=== PATIENT | female | born 1995 | race American Indian/Alaskan Native ===

== ENCOUNTER 2021-10-07 00:44 | Inpatient (IN) | payer SELFPAY ==
[2021-10-07] MEDS ORDERED: LACTATED RINGERS 500 ML IV ONE ×2 (01:08→01:28)
[2021-10-07 01:42] LABS: Hematocrit 30.2 % (30.3-42.9); Hemoglobin 9.6 gm/dl (10.1-14.3); Mean Corpuscular HGB Conc 32 % (30-34); Mean Corpuscular Volume 95 fl (79-97); Platelet Count 233 K/mm3 (140-440); Red Cell Distribution Width 14.6 % (13.2-15.2)
[2021-10-07 01:59] LABS: Bacteria,Urine 4+ /HPF (Negative); Mucus,Urine 2+ /HPF
[2021-10-07 02:02] LABS: Alanine Aminotransferase 7 units/L (7-56)
[2021-10-07 02:03] LABS: Bilirubin,Urine Negative (Negative); Color,Urine Yellow (Yellow); RBC,Urine > 182.0 /HPF (0.0-6.0); WBC,Urine > 182.0 /HPF (0.0-6.0)
[2021-10-07 02:11] LABS: Blood,Urine Moderate (Negative)
[2021-10-07 02:14] LABS: Uric Acid 4.1 mg/dL (3.5-7.6)
[2021-10-07] MEDS ORDERED: miSOPROStol 200 MCG TAB PR PRN (02:28)
[2021-10-07] MEDS ORDERED: NalbUPHINE 10 MG/1 ML INJ IV PRN (02:28)
[2021-10-07] MEDS ORDERED: TERBUTALINE 1 MG/1 ML INJ SUB-Q PRN (02:28)
[2021-10-07] MEDS ORDERED: BUTORPHANOL 2 MG/1 ML INJ IV PRN (02:28)
[2021-10-07] MEDS ORDERED: ePHEDrine SULFATE 50 MG/1 ML INJ IV PRN ×2 (02:28→06:22)
[2021-10-07] MEDS ORDERED: METHYLERGONOVINE MALEATE 0.2 MG/ML VIAL IM PRN (02:28)
[2021-10-07] MEDS ORDERED: MINERAL OIL 30 ML ORAL LIQD PO PRN (02:28)
[2021-10-07] MEDS ORDERED: fentaNYL 100 MCG/2 ML INJ IV PRN (02:28)
[2021-10-07] MEDS ORDERED: ACETAMINOPHEN 325 MG TAB PO PRN (02:28)
[2021-10-07] MEDS ORDERED: AMPICILLIN/NS 2 GM/100 ML 2 GM/100 ML BAG IV ONE (02:28)
[2021-10-07] MEDS ORDERED: LOPERAMIDE 2 MG CAP PO PRN (02:28)
[2021-10-07] MEDS ORDERED: OXYTOCIN 10 UNIT/1 ML INJ IM PRN (02:28)
[2021-10-07] MEDS ORDERED: LIDOCAINE (2%) 20 MG/1 ML VIAL 20 ML MDV INFILTRATI ONE (02:28)
[2021-10-07] MEDS ORDERED: CARBOPROST TROMETHAMINE 250 MCG/1 ML INJ IM PRN (02:28)
[2021-10-07] MEDS ORDERED: LACTATED RINGERS 1,000 ML IV SCH (02:30)
[2021-10-07] MEDS ORDERED: MAGNESIUM SULFATE 4 GM/100 ML BAG IV ONE (02:32)
[2021-10-07 02:54] LABS: Hematocrit 29.5 % (30.3-42.9); Hemoglobin 9.5 gm/dl (10.1-14.3); Mean Corpuscular HGB Conc 32 % (30-34); Mean Corpuscular Volume 95 fl (79-97); Platelet Count 232 K/mm3 (140-440); Red Blood Count 3.12 M/mm3 (3.65-5.03); Red Cell Distribution Width 14.7 % (13.2-15.2)
[2021-10-07] MEDS ORDERED: OXYTOCIN DRIP 30 UNITS/500 ML BAG IV SCH ×2 (03:00)
[2021-10-07] MEDS ORDERED: BETAMET ACET/BETAMET NA PH 6 MG/ML INJ 5 ML MDV IM SCH (03:00)
[2021-10-07] MEDS: hydrALAZINE 20 MG/1 ML INJ IV PRN (03:05)
[2021-10-07] MEDS: MAGNESIUM SULFATE 40GM/1000ML 40 GM/1,000 ML BAG IV SCH ×2 (04:16→21:50)
[2021-10-07] MEDS ORDERED: NALOXONE 0.4 MG/1 ML INJ IV PRN (06:22)
--- NOTE | 2021-10-07 06:24 | Anesthesia Consultation ---
Anesthesia Consult and Med Hx Date of service: 10/07/21 - Airway Anesthetic Teeth Evaluation: Good ROM Head & Neck: Adequate Mental/Hyoid Distance: Adequate Mallampati Class: Class II Intubation Access Assessment: Probably Good - Pulmonary Exam CTA: Yes - Cardiac Exam Cardiac Exam: RRR - Pre-Operative Health Status ASA Pre-Surgery Classification: ASA2 Proposed Anesthetic Plan: Epidural - Pulmonary Hx Smoking: No Hx Asthma: No Hx Respiratory Symptoms: No SOB: No COPD: No Home Oxygen Therapy: No Hx Pneumonia: No Hx Sleep Apnea: No - Cardiovascular System Hx Hypertension: No Hx Coronary Artery Disease: No Hx Heart Attack/AMI: No Hx Angina: No Hx Percutaneous Transluminal Coronary Angioplasty (PTCA): No Hx Cardia Arrhythmia: No Hx Pacemaker: No Hx Internal Defibrillator: No Hx Valvular Heart Disease: No Hx Heart Murmur: No Hx Peripheral Vascular Disease: No - Central Nervous System Hx Neuromuscular Disorder: No Hx Seizures: No CVA: No Hx Back Pain: No Hx Psychiatric Problems: No - Gastrointestinal Hx Ulcer: No Hx Gastroesophageal Reflux Disease: No - Endocrine Hx Renal Disease: No Hx End Stage Renal Disease: No Hx Cirrhosis: No Hx Liver Disease: No Hx Insulin Dependent Diabetes: No Hx Non-Insulin Dependent Diabetes: No Hx Thyroid Disease: No Hx Hypothyroidism: No Hx Hyperthyroidism: No - Hematic Hx Anemia: No Hx Sickle Cell Disease: No - Other Systems Hx Alcohol Use: No Hx Substance Use: No Hx Cancer: No Hx Obesity: No
--- NOTE | 2021-10-07 06:24 | Anesthesia Day of Surgery ---
Anesthesia Day of Surgery - Day of Surgery Patient Examined: Yes Patient H&P Reviewed: Yes Patient is NPO: Yes Beta Blockers: No Cardiac Clearance: No Pulmonary Clearance: No Alfredo's Test: N/A
--- NOTE | 2021-10-07 06:26 | Progress Note ---
Labor Epidural - Labor Epidural Start Time: 05:56 Stop Time: 06:03 Performed by:: KG GARCIA Procedure: Patient is requesting epidural for labor pain. H&P and labs reviewed. Procedure explained, questions answered, consent obtained. Patient placed in sitting position with monitors applied. Timeout performed immediately before start of procedure. Prep/drape in usual sterile fashion. Skin localized 3 mL 1% lidocaine at L[3]-L[4] x 1 attempt. 17-gauge Touhy epidural needle advanced to AGUSTÍN with saline at 10] cm. No blood/CSF noted via epidural needle. Epidural catheter advanced to [13] cm. Negative aspiration for blood and CSF via catheter, negative response to test dose 3 ml 1.5% lidocaine w/ Epi. Sterile dressing applied followed by tape reinforcement. Patient tolerated procedure well. No immediate complications noted.
[2021-10-07] MEDS ORDERED: fentaNYL-BUPIV 2 MCG/ML-0.125% 200 MCG/100 ML BAG EPIDURAL SCH (07:00)
[2021-10-07] MEDS ORDERED: AMPICILLIN/NS 1 GM/50 ML 1 GM/50 ML BAG IV SCH (08:20)
--- NOTE | 2021-10-07 08:30 | History and Physical Report ---
History of Present Illness Date of examination: 10/07/21 Date of admission: 10/07/21 02:29 Chief complaint: Contractions History of present illness: 26-year-old -1-0-3 at 35+0 weeks who presents via EMS with a complaint of regular uterine contractions. Upon evaluation the patient was found to have elevated blood pressures irregular uterine contractions. Her cervical exam consisted of 4 cm dilated and the patient was intact. She reports having had care during this . She denied leakage of fluid or vaginal bleeding. The patient states a history of preeclampsia in previous pregnancies. Her GBS status is unknown. Past History Past Medical History: no pertinent history Past Surgical History: no surgical history Social history: single - Obstetrical History Expected Date of Delivery: 11/11/21 Actual Gestation: 35 Week(s) 0 Day(s) : 4 Para: 3 Hx # Term Pregnancies: 2 Number of Pregnancies: 1 Spontaneous Abortions: 0 Induced : 0 Number of Living Children: 3 Medications and Allergies Allergies Allergy/AdvReac Type Severity Reaction Status Date / Time No Known Allergies Allergy Verified 10/07/21 01:34 Active Meds: Active Medications Acetaminophen (Acetaminophen 325 Mg Tab) 650 mg PO Q4H PRN PRN Reason: Pain, Mild (1-3) Betamethasone Acet/Betameth SodPhos (Betamet Acet/Betamet Na Ph 6 Mg/Ml Inj 5 Ml Mdv) 12 mg IM Q24H RUPERT Stop: 10/08/21 03:01 Last Admin: 10/07/21 03:08 Dose: 12 mg Butorphanol Tartrate (Butorphanol 2 Mg/1 Ml Inj) 2 mg IV Q2H PRN PRN Reason: Pain , Severe (7-10) Carboprost Tromethamine (Carboprost Tromethamine 250 Mcg/1 Ml Inj) 250 mcg IM ONCE PRN PRN Reason: Uterine Bleeding Ephedrine Sulfate (Ephedrine Sulfate 50 Mg/1 Ml Inj) 10 mg IV Q2M PRN PRN Reason: Hypotension Fentanyl (Fentanyl 100 Mcg/2 Ml Inj) 100 mcg IV Q2H PRN PRN Reason: Pain,Severe (7-10) LABOR PAIN Hydralazine HCl (Hydralazine 20 Mg/1 Ml Inj) 5 mg IV Q30MIN PRN PRN Reason: Blood Pressure Last Admin: 10/07/21 03:05 Dose: 5 mg Oxytocin/Sodium Chloride (Pitocin/Ns 30 Unit/500ml) 30 units in 500 mls @ 2 mls/hr IV TITR RUPERT; Protocol Lactated Ringer's (Lactated Ringers) 1,000 mls @ 125 mls/hr IV DIRECT RUPERT Oxytocin/Sodium Chloride (Pitocin/Ns 30 Unit/500ml) 30 units in 500 mls @ 40 mls/hr IV TITR RUPERT; Protocol Magnesium Sulfate (Magnesium Sulfate 40gm/1000ml) 40 gm in 1,000 mls @ 50 mls/hr IV DIRECT RUPERT Last Admin: 10/07/21 04:16 Dose: 2 gm/hr, 50 mls/hr Fentanyl/Bupivacaine/Sodium Chlor (Fentanyl-Bupiv 2 Mcg/Ml-0.125%) 200 mcg in 100 mls @ 12 mls/hr EPIDURAL TITR RUPERT; Protocol Last Admin: 10/07/21 07:29 Dose: 12 mls/hr Ampicillin Sodium (Ampicillin/Ns 1 Gm/50 Ml) 1 gm in 50 mls @ 100 mls/hr IV Q4H RUPERT; Protocol Stop: 10/07/21 23:59 Last Admin: 10/07/21 08:14 Dose: 100 mls/hr Loperamide HCl (Loperamide 2 Mg Cap) 2 mg PO ONCE PRN PRN Reason: give with Hemabate Methylergonovine Maleate (Methylergonovine Maleate 0.2 Mg/Ml Vial) 0.2 mg IM ONCE PRN PRN Reason: Uterine Bleeding Mineral Oil (Mineral Oil 30 Ml Oral Liqd) 30 ml PO QHS PRN PRN Reason: Constipation Misoprostol (Misoprostol 200 Mcg Tab) 800 mcg SC ONCE PRN PRN Reason: Uterine Bleeding Nalbuphine HCl (Nalbuphine 10 Mg/1 Ml Inj) 10 mg IV Q2H PRN PRN Reason: Pain, Moderate (4-6) Naloxone HCl (Naloxone 0.4 Mg/1 Ml Inj) 0.2 mg IV Q5MIN PRN PRN Reason: Respiratory sedation Oxytocin (Oxytocin 10 Unit/1 Ml Inj) 10 unit IM ONCE PRN PRN Reason: Uterine Bleeding Terbutaline Sulfate (Terbutaline 1 Mg/1 Ml Inj) 0.25 mg SUB-Q ONCE PRN PRN Reason: Hyperstimulation/Hypertonicity Review of Systems All systems: negative Genitourinary: pelvic pain, contractions, no leakage of fluid - Vital Signs Vital signs: Vital Signs Pulse Pulse Ox 91 H 72 L 10/07/21 01:01 10/07/21 01:01 Temp Pulse Resp BP Pulse Ox 97.8 F 104 H 16 130/84 100 10/07/21 07:52 10/07/21 08:22 10/07/21 07:52 10/07/21 07:58 10/07/21 08:22 - Physical Exam Breasts: Positive: deferred Cardiovascular: Regular rate Lungs: Positive: Clear to auscultation Abdomen: Positive: normal appearance - Obstetrical Cervical Dilatation: 4 Uterine Contraction Pattern: Regular Uterine Contraction Intensity: Moderate Results Result Diagrams: 10/07/21 01:22 10/07/21 01:09 Abnormal lab results 10/07/21 10/07/21 10/07/21 Range/Units 01:09 01:20 01:20 WBC 11.5 H (4.5-11.0) K/mm3 RBC 3.20 L (3.65-5.03) M/mm3 Hgb 9.6 L (10.1-14.3) gm/dl Hct 30.2 L (30.3-42.9) % Creatinine 0.4 L (0.6-1.2) mg/dL Urine Blood Moderate A (Negative) Urine WBC (Auto) > 182.0 H (0.0-6.0) /HPF U Epithel Cells (Auto) 35.0 H (0-13.0) /HPF 10/07/21 Range/Units 01:22 WBC 11.2 H (4.5-11.0) K/mm3 RBC 3.12 L (3.65-5.03) M/mm3 Hgb 9.5 L (10.1-14.3) gm/dl Hct 29.5 L (30.3-42.9) % Creatinine (0.6-1.2) mg/dL Urine Blood (Negative) Urine WBC (Auto) (0.0-6.0) /HPF U Epithel Cells (Auto) (0-13.0) /HPF All other labs normal. Assessment and Plan - Patient Problems (1) labor Current Visit: Yes Status: Acute Plan to address problem: The patient was admitted and initiated on hydralazine and magnesium sulfate therapy for her elevated blood pressures Expectant management of uterine contractions (2) Hypertension affecting Current Visit: Yes Status: Acute (3) Preeclampsia Current Visit: Yes Status: Acute
--- NOTE | 2021-10-07 09:04 | Procedure Note ---
OB Delivery Note - Delivery Date of Delivery: 10/07/21 Surgeon: ANN SANTOS Estimated blood loss: 200cc - Vaginal Delivery presentation: vertex Delivery position: OA Intrapartum events: labor-<37 weeks, preeclampsia Delivery induction: AROM Delivery monitor: external FHT, external uterine Route of delivery: Delivery placenta: spontaneous Delivery cord: 3 umbilical vessels Episiotomy: none Delivery laceration: none Anesthesia: epidural Delivery comments: The patient had rapid progression from 6 cm to complete for which the delivery was attended by the charge nurse. The patient had a spontaneous vaginal delivery of a liveborn male infant. The was placed on the patient's abdomen. Delayed cord clamping was performed. The cord was clamped and cut and the was placed on the warmer. The placenta delivered spontaneously intact with a three-vessel cord. No lacerations were noted. Weight of 4 pounds 15 ounces Apgars of 8 and 9. Estimated blood loss 200 mL - A at 1 minute: 8 at 5 minutes: 9 Infant Gender: Male (Weight 4 pounds 15 ounces)
[2021-10-07] MEDS ORDERED: MAGNESIUM HYDROXIDE (MOM) ORAL LIQD UDC PO PRN (09:30)
[2021-10-07] MEDS ORDERED: ONDANSETRON 4 MG/2 ML INJ IV PRN (10:00)
[2021-10-07] MEDS ORDERED: diphenhydrAMINE 25 MG CAP PO PRN (10:00)
[2021-10-07] MEDS ORDERED: PROMETHAZINE 25 MG TAB PO PRN (10:00)
[2021-10-07] MEDS ORDERED: WITCH HAZEL/ GLYCERIN PAD TP PRN (10:00)
[2021-10-07] MEDS ORDERED: LANOLIN/ZINC/DIMETHICONE (LANSINOH) 7 GM TP PRN (10:00)
[2021-10-07] MEDS ORDERED: PROMETHAZINE 25 MG RECT SUPP PR PRN (10:00)
[2021-10-07] MEDS ORDERED: HYDROcodone/ACETAMINOPHEN 5-325 MG TAB PO PRN (10:00)
[2021-10-07 18:00] LABS: Amphetamine Screen,Urine Negative; Benzodiazepines Screen,Urine Negative; Cocaine Screen,Urine Negative; Methadone Screen,Urine Negative; Opiate Screen,Urine Negative
[2021-10-07 18:18] LABS: Mucus,Urine FEW /HPF
[2021-10-07] MEDS: IBUPROFEN 800 MG TAB PO SCH (18:28)
[2021-10-07 18:35] LABS: Bilirubin,Urine Negative (Negative); Blood,Urine 1+ (Negative); Color,Urine Yellow (Yellow); Protein,Urine <15 mg/dL mg/dL (Negative); Urobilinogen,Urine < 2.0 mg/dL (<2.0)
[2021-10-07 19:23] LABS: Cannabinoid Screen,Urine Positive
--- NOTE | 2021-10-07 20:00 | Post Anesthesia Evaluation ---
- Post Anesthesia Evaluation Patient Participated: Yes Airway Patent: Yes Stable Respiratory Function: Yes Nausea/Vomiting: No Temp > 96.8F: Yes Pain Manageable: Yes Adequeate Hydration: Yes Anesthesia Complications: No Block Receding Appropriately: Yes Patient on Ventilator: No
[2021-10-07 21:03] LABS: Hepatitis C Virus Antibody Nonreactive (NonReactive)
[2021-10-07 22:00] LABS: Hematocrit 26.3 % (30.3-42.9); Hemoglobin 8.3 gm/dl (10.1-14.3)
[2021-10-08] MEDS: IBUPROFEN 800 MG TAB PO SCH ×3 (00:23→22:30)
--- NOTE | 2021-10-08 08:39 | Progress Note ---
Assessment and Plan A: PPD#1 s/p at 35wks Pre-eclampsia s/p Mag sulfate Acute on chronic anemia P: Continue with routine care with discharge anticipated tomorrow morning Initiate oral iron supplementation Subjective - Subjective Date of service: 10/08/21 Principal diagnosis: PPD1 s/p at 35wks Interval history: Pt is feeling well and without complaints. She reports adequate pain control and decreasing lochia. During the encounter the patient was being transferred to . Patient reports: appetite normal, voiding normally, pain well controlled : in NICU Objective - Vital Signs Latest vital signs: Vital Signs Temp Pulse Resp BP BP Pulse Ox Pulse Ox 10/08/21 08:24 81 100 10/08/21 08:19 75 100 10/08/21 08:14 74 115/71 100 10/08/21 08:09 73 100 10/08/21 08:04 75 100 10/08/21 07:59 74 100 10/08/21 07:54 74 100 10/08/21 07:49 74 100 10/08/21 07:44 73 122/75 100 10/08/21 07:40 97.8 F 82 18 120/75 100 100 10/08/21 07:39 82 100 10/08/21 07:34 74 100 10/08/21 07:29 76 100 10/08/21 07:24 74 100 10/08/21 07:19 74 100 10/08/21 07:14 72 120/75 100 10/08/21 07:09 72 100 10/08/21 07:04 77 100 10/08/21 06:59 80 100 10/08/21 06:54 72 100 10/08/21 06:49 81 100 10/08/21 06:44 71 122/72 100 10/08/21 06:42 84 90 10/08/21 06:39 67 97 10/08/21 06:37 71 93 10/08/21 06:34 79 99 10/08/21 06:32 81 90 10/08/21 06:29 71 100 10/08/21 06:24 81 100 10/08/21 06:19 77 100 10/08/21 06:14 74 112/70 100 10/08/21 06:09 73 100 10/08/21 06:04 73 100 10/08/21 06:03 97.7 F 06/21/22 05:59 75 100 06/22 05:54 72 100 06 05:49 79 100 0622 05:44 73 108/65 100 06 05:39 80 100 06/ 05:34 75 100 06/ 05:29 74 100 06 05:24 78 100 06 05:19 78 100 06 05:14 76 108/61 100 06 05:09 74 100 06 05:04 73 100 06 04:59 79 100 06 04:54 80 100 10/08/21 04:49 86 100 10/08/21 04:44 77 99/54 100 10/08/21 04:39 79 100 06 04:34 75 100 10/08/21 04:29 74 100 10/08/21 04:24 76 100 10/08/21 04:19 75 100 10/08/21 04:14 76 105/56 100 06 04:09 73 100 10/08/21 04:04 85 96 10/08/21 03:59 78 100 10/08/21 03:54 75 100 10/08/21 03:49 74 100 10/08/21 03:44 77 108/62 100 10/08/21 03:39 80 100 10/08/21 03:34 79 100 06 03:29 75 100 10/08/21 03:24 75 100 10/08/21 03:19 75 100 10/08/21 03:14 75 107/61 100 0622 03:09 74 100 06 03:04 75 100 06 02:59 74 100 10/08/22 02:54 76 100 22 02:49 75 100 0622 02:44 75 109/61 100 10/08/21 02:39 75 100 06 02:34 75 100 10/08/21 02:29 75 100 06 02:24 75 100 22 02:19 75 100 10/08/21 02:14 75 108/62 100 10/08/21 02:09 75 100 06/21/22 02:04 74 100 06/21/22 01:59 79 100 06/21/22 01:54 85 100 06/21/22 01:49 77 100 06/21/22 01:44 74 122/66 100 06/21/22 01:39 85 98 06/21/22 01:34 73 100 06/21/22 01:29 76 100 06/21/22 01:24 75 100 06/21/22 01:19 75 100 06/21/22 01:14 74 111/67 100 06/21/22 01:09 73 100 0622 01:04 71 100 06/21/22 00:59 70 100 06/21/22 00:54 70 100 06//22 00:49 76 100 0621/22 00:44 78 123/80 100 06//22 00:39 76 100 0622 00:34 70 100 06//22 00:29 81 100 06 00:26 76 121/74 0622 00:24 74 100 06 00:20 98.1 F 76 18 121/74 100 06//22 00:19 75 100 06//22 00:14 73 121/74 100 06/22 00:08 74 99 0622 00:03 73 100 0620/22 23:58 114 H 100 062022 23:53 75 100 06/20/22 23:48 76 98 06/20/22 23:44 77 119/75 0620/22 23:43 76 100 06/20/22 23:38 78 100 06/20/22 23:33 74 99 06/20/22 23:28 73 100 06/20/22 23:23 76 100 06/20/22 23:18 80 100 06/20/22 23:14 77 120/74 06/20/22 23:13 78 98 06/20/22 23:08 80 100 06/20/22 23:03 80 100 06/20/22 22:58 82 100 06/20/22 22:53 77 100 06/20/22 22:48 79 100 06/20/22 22:44 77 110/63 06/20/22 22:43 80 100 06/20/22 22:38 76 100 06/20/22 22:33 77 100 06/20/22 22:28 76 100 06/20/22 22:23 82 100 06/20/22 22:18 80 100 06/20/22 22:14 78 113/67 06/20/22 22:13 81 100 06/20/22 22:08 75 100 06/20/22 22:03 80 98 06/20/22 21:58 76 98 06/20/22 21:53 78 100 06/20/22 21:48 77 100 06/20/22 21:44 77 107/68 06/20/22 21:43 80 99 06/20/22 21:38 80 100 06/20/22 21:33 80 100 06/20/22 21:28 82 98 06/20/22 21:23 85 98 06/20/22 21:18 80 100 06/20/22 21:14 78 108/65 0620/22 21:13 78 99 06/20/22 21:08 85 100 0620/22 21:03 80 100 06/20/22 20:58 78 100 06/20/22 20:53 80 100 06/20/22 20:48 79 100 06/20/22 20:44 77 106/63 06/20/22 20:43 79 99 06/20/22 20:38 79 100 06/20/22 20:33 80 100 06/20/22 20:28 80 100 06/20/22 20:23 79 99 06/20/22 20:18 80 100 06/20/22 20:14 78 109/68 0620/22 20:13 81 99 06/20/22 20:08 80 100 06/20/22 20:03 82 98 06/20/22 19:58 84 100 06/20/22 19:55 98.3 F 80 18 110/70 99 99 06/20/22 19:53 81 100 06/20/22 19:48 90 99 06/20/22 19:44 81 110/70 0620/22 19:43 78 100 06/20/22 19:38 81 99 06/20/22 19:33 83 99 06/20/22 19:28 78 99 06/20/22 19:23 83 100 06/20/22 19:18 87 100 06/20/22 19:14 85 127/78 0620/22 19:13 82 98 06 19:08 85 100 10/07/21 19:03 93 H 99 10/07/21 18:58 90 100 10/07/21 18:53 91 H 100 10/07/21 18:48 88 99 10/07/21 18:44 86 136/84 10/07/21 18:43 87 99 10/07/21 18:38 86 100 10/07/21 18:33 92 H 100 10/07/21 18:28 94 H 100 10/07/21 18:27 96 H 137/90 10/07/21 18:26 97 H 137/90 10/07/21 18:23 94 H 100 10/07/21 18:18 89 99 10/07/21 18:14 89 127/82 10/07/21 18:13 90 100 10/07/21 18:08 87 100 10/07/21 18:03 89 100 10/07/21 17:58 93 H 99 10/07/21 17:53 82 100 10/07/21 17:48 90 100 10/07/21 17:44 79 167/95 10/07/21 17:43 80 100 10/07/21 17:38 82 100 10/07/21 17:33 81 100 10/07/21 17:28 87 100 10/07/21 17:23 90 100 10/07/21 17:18 88 100 10/07/21 17:14 87 165/98 94 10/07/21 17:13 84 99 10/07/21 17:08 87 100 10/07/21 17:03 84 99 10/07/21 16:58 85 100 10/07/21 16:53 94 H 100 10/07/21 16:50 92 H 91 10/07/21 16:48 83 100 10/07/21 16:44 82 148/92 10/07/21 16:43 83 99 10/07/21 16:38 85 100 10/07/21 16:35 88 155/95 10/07/21 16:34 98.6 F 89 16 155/95 100 06 16:33 85 100 10/07/21 16:32 92 H 144/102 10/07/21 16:30 100 10/07/21 16:14 88 139/86 10/07/21 15:44 87 160/88 10/07/21 15:13 96 H 142/90 10/07/21 14:58 89 138/87 10/07/21 14:43 97 H 128/92 10/07/21 14:28 102 H 143/101 10/07/21 14:13 97 H 151/106 10/07/21 13:58 96 H 142/87 10/07/21 13:43 98 H 139/88 10/07/21 13:28 103 H 143/89 10/07/21 13:13 104 H 141/89 10/07/21 12:58 103 H 137/86 10/07/21 12:43 107 H 131/89 10/07/21 12:28 97 H 134/75 10/07/21 12:14 97 H 154/85 10/07/21 11:58 97 H 144/89 10/07/21 11:43 96 H 157/102 10/07/21 11:28 102 H 148/98 10/07/21 11:13 100 H 145/90 10/07/21 10:58 93 H 139/88 10/07/21 10:43 99 H 147/95 10/07/21 10:28 92 H 148/95 10/07/21 10:13 90 148/96 10/07/21 09:58 88 152/99 10/07/21 09:43 93 H 156/103 10/07/21 09:28 92 H 155/100 10/07/21 09:14 103 H 180/109 10/07/21 09:02 110 H 100 10/07/21 08:57 99 H 100 10/07/21 08:52 114 H 100 10/07/21 08:47 112 H 100 10/07/21 08:42 108 H 100 10/07/21 08:37 110 H 100 Intake and Output 10/07/21 10/08/21 10/08/21 23:59 07:59 15:59 Intake Total 1358.333 240 Output Total 1300 1725 Balance 58.333 -1485 Intake: IV 878.333 MAGNESIUM SULFATE 40GM/ 878.333 1000ML 40 gm In 1,000 ml @ 2 GM/HR 50 mls/hr IV DIRECT RUPERT Rx#:[id number] Oral 480 240 Output: Urine 1300 1725 Indwelling Catheter 1300 1725 Other: Total, Intake Amount 240 240 Total, Output Amount 700 250 - Labs Labs: Abnormal lab results 10/07/21 10/07/21 10/07/21 Range/Units 08:13 11:38 17:00 Hgb (10.1-14.3) gm/dl Hct (30.3-42.9) % Magnesium 4.50 H 4.80 H (1.7-2.3) mg/dL Urine pH 8.0 H (5.0-7.0) 10/07/21 10/07/21 10/08/21 Range/Units 18:21 21:40 00:10 Hgb 8.3 L (10.1-14.3) gm/dl Hct 26.3 L (30.3-42.9) % Magnesium 5.10 H 5.50 H (1.7-2.3) mg/dL Urine pH (5.0-7.0) 10/08/21 Range/Units 05:57 Hgb (10.1-14.3) gm/dl Hct (30.3-42.9) % Magnesium 6.30 H (1.7-2.3) mg/dL Urine pH (5.0-7.0)
[2021-10-08] MEDS: FERROUS SULFATE 325 MG TAB PO SCH ×2 (10:24→22:30)
--- NOTE | 2021-10-08 18:29 | Discharge Summary ---
Providers - Providers Date of Admission: 10/07/21 02:29 Date of discharge: 10/09/21 Attending physician: ANN SANTOS 10/07/21 21:31 Consult to Case Management [CONS] Routine Services Needed at Discharge: Applied Statistician Notified:: Ext [phone] Was contact made?: No Additional Physician Instructions: Positive UDS/THC Primary care physician: ANN SANTOS Hospitalization Reason for admission: active labor, labor, other (Pre-eclampsia) Delivery: Episiotomy: none Laceration: none Other procedures: none complications: none Discharge diagnosis: delivery baby: male Hospital course: The patient presented via EMS with a complaint of regular uterine contractions. Upon evaluation the patient was found to have elevated blood pressures and irregular uterine contractions. She went on to have a of a viable male infant. She received 24hrs of Mag Sulfate for seizure prophylaxis. Her course was uncomplicated. Condition at discharge: Good Disposition: 01 HOME / SELF CARE / HOMELESS Plan - Discharge Medications Prescriptions: Ferrous Sulfate [Iron 325 MG] 325 mg PO TID 30 Days #90 tab Ibuprofen [Motrin] 600 mg PO Q8H PRN 30 Days #30 tablet PRN Reason: Pain - Provider Discharge Summary Activity: routine, no sex for 6 weeks, no heavy lifting 4 weeks, no strenuous exercise Diet: routine Instructions: routine Additional instructions: [] Smoking cessation referral if applicable(refer to patient education folder for contact #) [] Refer to [facility]'s [facility] Booklet Call your doctor immediately for: * Fever > 100.5 * Heavy vaginal bleeding ( >1 pad per hour) * Severe persistent headache * Shortness of breath * Reddened, hot, painful area to leg or breast * Drainage or odor from incision. * Keep incision clean and dry at all times and follow doctor's instructions regarding bathing/showering Please follow-up with [facility] 48hrs after discharge for a BP check - Follow up plan Follow up: TASH RIOS NP [Advanced Practice Nurse] - 10/11/21
[2021-10-09] MEDS: hydrALAZINE 20 MG/1 ML INJ IV PRN (05:31)
[2021-10-09] MEDS: IBUPROFEN 800 MG TAB PO SCH (09:46)
[2021-10-09] MEDS: FERROUS SULFATE 325 MG TAB PO SCH (09:46)
[2021-10-09 09:48] VITALS: BP 144/91
== END 2021-10-09 12:35 | disposition home or self-care (01) | DRG 807 ==
LOC: TRG 00:44 → APU 00:47 → TRG 02:29 → LD 02:29 → OB 10-08 08:38
PROVIDERS: ADMIT Obstetrics & Gynecology; ATTEND Obstetrics & Gynecology
PROC: 10E0XZZ Delivery of Products of Conception, External Approach (ICD-10-PCS; principal; 2021-10-07)
PROC: 3E0R3BZ Introduction of Anesthetic Agent into Spinal Canal, Percutaneous Approach (ICD-10-PCS; 2021-10-07)
PROC: 00HU33Z Insertion of Infusion Device into Spinal Canal, Percutaneous Approach (ICD-10-PCS; 2021-10-07)
PROC: 10907ZC Drainage of Amniotic Fluid, Therapeutic from Products of Conception, Via Natural or Artificial Opening (ICD-10-PCS; 2021-10-07)
DX: O60.14X0 Preterm labor third trimester with preterm delivery third trimester, not applicable or unspecified (principal); Z37.0 Single live birth; Z3A.35 35 weeks gestation of pregnancy; Z20.822 Contact with and (suspected) exposure to COVID-19; O14.94 Unspecified pre-eclampsia, complicating childbirth; O16.4 Unspecified maternal hypertension, complicating childbirth; O90.81 Anemia of the puerperium
CPT/HCPCS: 36415; 59025; 80307; 81001; 82565; 83615; 83735; 84450; 84460; 84550; 85014; 85018; 85027; 86592; 86706; 86762; 86803; 86850; 86900; 86901; 87806; 96360; 99211; G0378; J3490; G0463; J0290; J0360; J0702; J3475; J7120; U0003

== ENCOUNTER 2021-11-01 12:10 | Emergency (ER) | payer MEDICAID ==
--- NOTE | 2021-11-01 13:45 | Emergency Department Report ---
ED Female HPI - General Chief complaint: Extremity Problem,Nontraumatic Stated complaint: LEFT SIDE PAIN AND PELVIC PAIN Time Seen by Provider: 11/01/21 13:40 Source: patient Mode of arrival: Ambulatory Limitations: No Limitations - History of Present Illness Initial comments: 26-year-old female 3-week status post vaginal delivery with utilization of an epidural with no reported complications at the time of presents emergency department via the guidance of her PCP who advised her to come to [facility] apartment to get checked out due to her experiencing pelvic pain and cramping with increased urination of an unknown etiology. Pain does radiate across the pelvis to the hip regions off and on and appears to go to the back flank region. Ports no fever, chills, sweats. No hemoptysis no hematemesis no hematochezia. MD Complaint: pelvic pain -: Gradual Location: suprapubic Radiation: non-radiating Quality: sharp Consistency: constant Improves with: none Worsens with: movement (walking worsens pelvic pain. when stand for a period of time feels numbness and shooting pains to her leg) - Related Data Previous Rx's Medication Instructions Recorded Last Taken Type Ferrous Sulfate [Iron 325 MG] 325 mg PO TID 30 Days #90 tab 10/08/21 Unknown Rx Ibuprofen [Motrin] 600 mg PO Q8H PRN 30 Days #30 10/08/21 Unknown Rx tablet Ketorolac [Toradol] 10 mg PO Q6H PRN #15 tablet 11/01/21 Unknown Rx Nitrofurantoin [place]/M-Cryst 100 mg PO Q12HR #20 capsule 11/01/21 Unknown Rx [Macrobid CAP] Phenazopyridine [Pyridium] 200 mg PO TID #9 tab 11/01/21 Unknown Rx Allergies Allergy/AdvReac Type Severity Reaction Status Date / Time No Known Allergies Allergy Verified 11/01/21 12:29 ED Review of Systems ROS: Stated complaint: LEFT SIDE PAIN AND PELVIC PAIN Other details as noted in HPI Comment: All other systems reviewed and negative ED Past Medical Hx - Past Medical History Hx Hypertension: No Hx Heart Attack/AMI: No Hx Diabetes: No Hx Deep Vein Thrombosis: No Hx Liver Disease: No Hx Renal Disease: No Hx Sickle Cell Disease: No Hx Seizures: No Hx Asthma: No Hx COPD: No Hx HIV: No - Surgical History Hx Pacemaker: No Hx Internal Defibrillator: No - Social History Smoking Status: Current Every Day Smoker Substance Use Type: Marijuana - Medications Home Medications: Home Medications Medication Instructions Recorded Confirmed Last Taken Type Ferrous Sulfate [Iron 325 MG] 325 mg PO TID 30 Days #90 tab 10/08/21 Unknown Rx Ibuprofen [Motrin] 600 mg PO Q8H PRN 30 Days #30 10/08/21 Unknown Rx tablet Ketorolac [Toradol] 10 mg PO Q6H PRN #15 tablet 11/01/21 Unknown Rx Nitrofurantoin [place]/M-Cryst 100 mg PO Q12HR #20 capsule 11/01/21 Unknown Rx [Macrobid CAP] Phenazopyridine [Pyridium] 200 mg PO TID #9 tab 11/01/21 Unknown Rx ED Physical Exam - General Limitations: No Limitations General appearance: alert, in no apparent distress - Head Head exam: Present: atraumatic, normocephalic - Eye Eye exam: Present: normal appearance, PERRL, EOMI Pupils: Present: normal accommodation - ENT ENT exam: Present: mucous membranes moist - Neck Neck exam: Present: normal inspection - Respiratory Respiratory exam: Present: normal lung sounds bilaterally. Absent: respiratory distress - Cardiovascular Cardiovascular Exam: Present: regular rate, normal rhythm. Absent: systolic murmur, diastolic murmur, rubs, gallop - GI/Abdominal GI/Abdominal exam: Present: soft, normal bowel sounds - Extremities Exam Extremities exam: Present: normal inspection - Back Exam Back exam: Present: normal inspection - Neurological Exam Neurological exam: Present: alert, oriented X3 - Psychiatric Psychiatric exam: Present: normal affect, normal mood - Skin Skin exam: Present: warm, dry, intact, normal color. Absent: rash ED Course Vital Signs 11/01/21 11/01/21 12:25 19:35 Temperature 98.3 F Pulse Rate 89 90 Respiratory 18 18 Rate Blood Pressure 144/102 138/89 [Right] O2 Sat by Pulse 99 99 Oximetry ED Medical Decision Making - Lab Data Result diagrams: 11/01/21 16:51 11/01/21 16:51 Lab Results 11/01/21 11/01/21 11/01/21 Range/Units 16:51 16:51 Unknown WBC 6.3 (4.5-11.0) K/mm3 RBC 3.81 (3.65-5.03) M/mm3 Hgb 11.1 (10.1-14.3) gm/dl Hct 33.9 (30.3-42.9) % MCV 89 (79-97) fl MCH 29 (28-32) pg MCHC 33 (30-34) % RDW 16.0 H (13.2-15.2) % Plt Count 356 (140-440) K/mm3 Sodium 139 (137-145) mmol/L Potassium 3.6 (3.6-5.0) mmol/L Chloride 102.0 (98-107) mmol/L Carbon Dioxide 25 (22-30) mmol/L Anion Gap 16 mmol/L BUN 6 L (7-17) mg/dL Creatinine 0.6 (0.6-1.2) mg/dL Estimated GFR > 60 ml/min BUN/Creatinine Ratio 10 % Glucose 134 H (65-100) mg/dL Calcium 9.3 (8.4-10.2) mg/dL Total Bilirubin 0.20 (0.1-1.2) mg/dL AST 14 (5-40) units/L ALT 6 L (7-56) units/L Alkaline Phosphatase 98 (35-129) units/L Total Protein 8.0 (6.3-8.2) g/dL Albumin 3.7 L (3.9-5) g/dL Albumin/Globulin Ratio 0.9 % Urine Color Yellow (Yellow) Urine Turbidity Clear (Clear) Urine pH 6.0 (5.0-7.0) Ur Specific Comfrey 1.045 H (1.003-1.030) Urine Protein 30 mg/dl (Negative) mg/dL Urine Glucose (UA) Neg (Negative) mg/dL Urine Ketones Neg (Negative) mg/dL Urine Blood Sm (Negative) Urine Nitrite Neg (Negative) Urine Bilirubin Neg (Negative) Urine Urobilinogen < 2.0 (<2.0) mg/dL Ur Leukocyte Esterase Mod (Negative) Urine WBC (Auto) 40.0 H (0.0-6.0) /HPF Urine RBC (Auto) 18.0 (0.0-6.0) /HPF U Epithel Cells (Auto) 2.0 (0-13.0) /HPF Urine Mucus 3+ /HPF - Radiology Data Radiology results: report reviewed [facility] [address] [place] [address] Cat Scan Report Signed Patient: BE MANCIA MR#: [id number] : 1995 Acct:[id number] Age/Sex: 26 / F A DM Date: 11/01/21 Loc: ED Attending Dr: Ordering Physician: VINI PIERCE Date of Service: 11/01/21 Procedure(s): CT abdomen pelvis w con Accession Number(s): [id number] cc: VINI PIERCE CT ABDOMEN AND PELVIS WITH CONTRAST INDICATION: pelvic and back pain post delivery. TECHNIQUE: Axial CT images were obtained through the abdomen and pelvis after IV contrast. All CT scans at this location are performed using CT dose reduction for ALARA by means of automated exposure control. COMPARISON: None available. FINDINGS: LOWER CHEST: No significant abnormality. LIVER: No significant abnormality. GALLBLADDER: No significant abnormality. BILE DUCTS: No significant abnormality. PANCREAS: No significant abnormality. SPLEEN: No significant abnormality. ADRENALS: No significant abnormality. RIGHT KIDNEY and URETER: No significant abnormality. LEFT KIDNEY and URETER: No significant abnormality. STOMACH and SMALL BOWEL: Fluid-filled small bowel with enhancing mucosa suggest sean for gastroenteritis. No bowel obstruction. COLON: No significant abnormality. APPENDIX: No significant abnormality. PERITONEUM: No free fluid. No free air. No fluid collection. LYMPH NODES: No significant adenopathy. AORTA and ARTERIES: No significant abnormality. IVC and VEINS: No significant abnormality. URINARY BLADDER: No significant abnormality. REPRODUCTIVE ORGANS: Enlarged uterus. ADDITIONAL FINDINGS: None. SKELETAL SYSTEM: No significant abnormality. IMPRESSION: 1. Possible viral gastroenteritis 2. Enlarged uterus. No acute abnormality Signer Name: Watson Cha MD Signed: 11/01/2021 6:08 PM Workstation Name: [id number] Transcribed By: TL Dictated By: Watson Cha MD Electronically Authenticated By: Watson Cha MD Signed Date/Time: 11/01/211807 DD/ 03 TD/TT: - Medical Decision Making This patient presents with abdominal pain of unclear etiology. Their evaluation has not identified a emergent etiology for the abdominal pain. Specifically, given the very benign exam, normal laboratory studies, and lack of significant risk factors, I have a very low suspicion for appendicitis, ischemic bowel, bowel perforation, or any other life threatening disease. I have discussed with the patient the level of uncertainty with undifferentiated abdominal pain and clearly explained the need to follow-up as noted on the discharge instructions, or return to the Emergency Department immediately if the pain worsens, develops fever, persistent and uncontrollable vomiting, or for any new symptoms or concerns. I discussed with the patient that this presentation today for abdominal pain could represent a significant risk for an acute abdominal process. Although the tests in the ED were essentially normal, there is still a possibility of a process such as appendicitis, diverticulitis, cholecystitis, ulcer, early bowel obstruction, mesenteric ischemia, kidney stone, or even kidney infection which could subsequently cause disability or . The patient understands that they must return within 24 hours for a recheck or see their physician within 24 hours for re-exam due to the possibility of significant surgical or medical process. Critical care attestation.: If time is entered above; I have spent that time in minutes in the direct care of this critically ill patient, excluding procedure time. ED Disposition Clinical Impression: Pelvic pain, UTI (urinary tract infection) Disposition: 01 HOME / SELF CARE / HOMELESS Is pt being admited?: No Does the pt Need Aspirin: No Condition: Stable Instructions: Urinalysis Test, Pelvic Pain, Female, Urinary Tract Infection, Adult Prescriptions: Nitrofurantoin [place]/M-Cryst [Macrobid CAP] 100 mg PO Q12HR #20 capsule Phenazopyridine [Pyridium] 200 mg PO TID #9 tab Ketorolac [Toradol] 10 mg PO Q6H PRN #15 tablet PRN Reason: Pain Referrals: [facility] [Provider Group] - 3-5 Days
[2021-11-01 17:09] LABS: Hematocrit 33.9 % (30.3-42.9); Hemoglobin 11.1 gm/dl (10.1-14.3); Mean Corpuscular HGB Conc 33 % (30-34); Mean Corpuscular Volume 89 fl (79-97); Platelet Count 356 K/mm3 (140-440); Red Blood Count 3.81 M/mm3 (3.65-5.03)
[2021-11-01 17:30] LABS: Alanine Aminotransferase 6 units/L (7-56); Albumin 3.7 g/dL (3.9-5); Blood Urea Nitrogen 6 mg/dL (7-17); Calcium 9.3 mg/dL (8.4-10.2); Hemolysis Index 8
[2021-11-01 17:34] LABS: BUN/Creatinine Ratio 10
--- NOTE | 2021-11-01 18:12 | Cat Scan Report ---
CT ABDOMEN AND PELVIS WITH CONTRAST INDICATION: pelvic and back pain post delivery. TECHNIQUE: Axial CT images were obtained through the abdomen and pelvis after IV contrast. All CT scans at this location are performed using CT dose reduction for ALARA by means of automated exposure control. COMPARISON: None available. FINDINGS: LOWER CHEST: No significant abnormality. LIVER: No significant abnormality. GALLBLADDER: No significant abnormality. BILE DUCTS: No significant abnormality. PANCREAS: No significant abnormality. SPLEEN: No significant abnormality. ADRENALS: No significant abnormality. RIGHT KIDNEY and URETER: No significant abnormality. LEFT KIDNEY and URETER: No significant abnormality. STOMACH and SMALL BOWEL: Fluid-filled small bowel with enhancing mucosa suggestive for gastroenteriti s. No bowel obstruction. COLON: No significant abnormality. APPENDIX: No significant abnormality. PERITONEUM: No free fluid. No free air. No fluid collection. LYMPH NODES: No significant adenopathy. AORTA and ARTERIES: No significant abnormality. IVC and VEINS: No significant abnormality. URINARY BLADDER: No significant abnormality. REPRODUCTIVE ORGANS: Enlarged uterus. ADDITIONAL FINDINGS: None. SKELETAL SYSTEM: No significant abnormality. IMPRESSION: 1. Possible viral gastroenteritis 2. Enlarged uterus. No acute abnormality Signer Name: Watson Cha MD Signed: 11/01/2021 6:08 PM Workstation Name: [id number]
[2021-11-01 18:48] LABS: Bilirubin,Urine NEG (Negative); Blood,Urine SM (Negative); Color,Urine Yellow (Yellow); Urobilinogen,Urine < 2.0 mg/dL (<2.0)
[2021-11-01 18:51] LABS: Mucus,Urine 3+ /HPF
[2021-11-01 19:35] VITALS: BP 138/89
== END 2021-11-03 05:49 | disposition home or self-care (01) ==
LOC: ED 12:10
DX: R10.2 Pelvic and perineal pain (principal); N39.0 Urinary tract infection, site not specified; F17.200 Nicotine dependence, unspecified, uncomplicated; F12.90 Cannabis use, unspecified, uncomplicated
CPT/HCPCS: 36415; 74177; 80053; 81001; 85027; 87086; 99284; Q9967